=== PATIENT | female | born 1990 | race American Indian/Alaskan Native ===

== ENCOUNTER 2017-04-20 00:33 | Emergency (ER) | payer SELFPAY ==
[2017-04-20 10:49] VITALS: BP 126/95
[2017-04-20] MEDS ORDERED: TORADOL IM ONE (10:50)
--- NOTE | 2017-04-20 12:03 | Cat Scan Report ---
CT HEAD WITHOUT CONTRAST: HISTORY: Trauma with headache. Serial contiguous axial images were obtained through the cranium. Intravenous contrast material was not administered. The ventricles are normal in size and appearance. There is no mass effect or midline shift. No areas of abnormally increased or decreased attenuation are seen. No mass lesion is seen. The mastoid air cells and visualized portions of the sinuses are normal. IMPRESSION: Cranial CT scan within normal limits.
--- NOTE | 2017-04-20 18:24 | Emergency Department Report ---
Entered by CEASAR ACUNA, acting as scribe for CASSANDRA MORRIS NP. ED Headache HPI - General Chief Complaint: Headache Stated Complaint: HEADACHE Time Seen by Provider: 04/20/17 10:50 Source: patient Exam Limitations: no limitations - History of Present Illness Initial Comments: This is a 26 y/o female, nontoxic, well nourished in appearance, no acute signs of distress with a PMHx of anemia presents with a headache that began 3 days ago. Patient states she got hit in the head with a kickball 3 days ago. Rates pain an 8/10 in severity, which she describes as sharp and aching in quality. Aggravated with light exposure and movement, and alleviated with dark room. Denies LOC, blurry vision, stiff neck, nausea, vomiting, fever, chills, chest pain, SOB, ARRIAZA or dizziness, numbness, and tingling. Notes she has a PMHx of frequent headaches and migraines. Denies that this feels like a thunder-clap headache and that this is the worst headache in her life. Took OTC pain medication, Pain Away, with some relief. Patient states her headache is now a 4/ 10 in severity after receiving a shot of Toradol. NKDA. Timing/Duration: waxing and waning, other (3 days) Quality: severe, achy, sharp Recent Head Trauma: chronic headaches, head trauma > 24 hrs ago (3 days ago) Modifying Factors: improves with: medication. worse with: exposure to light, movement Associated Symptoms: denies symptoms. denies: confusion, fatigue, facial pain, fever/chills, flushing, loss of consciousness, nausea/vomiting, nasal congestion , nasal drainage, numbness in legs/feet, rash, seizures, sinus infection, stiff neck, vision changes, weakness Allergies/Adverse Reactions: Allergies No Known Allergies Allergy (Verified 12/11/13 18:41) Home Medications: Ambulatory Orders Hyoscyamine Subl [Levsin Sl] 0.125 mg SL Q4HR PRN #14 tablet 12/11/13 Ondansetron [Zofran Odt] 4 mg PO Q4H PRN #14 tab.rapdis 12/11/13 Butalb/Acetamin/Caff 50-325-40 [Fioricet] 1 tab PO Q6HR PRN #30 tab 04/20/17 ED Review of Systems Comment: All other systems reviewed and negative Constitutional: denies: chills, fever Eyes: denies: eye pain, eye discharge, vision change ENT: denies: ear pain, throat pain Respiratory: denies: cough, shortness of breath, wheezing Cardiovascular: denies: chest pain, palpitations Endocrine: no symptoms reported Gastrointestinal: denies: abdominal pain, nausea, vomiting, diarrhea Genitourinary: denies: urgency, dysuria, discharge Musculoskeletal: denies: back pain, joint swelling, arthralgia Skin: denies: rash, lesions Neurological: headache. denies: weakness, numbness, paresthesias, confusion, abnormal gait, vertigo Psychiatric: denies: anxiety, depression Hematological/Lymphatic: denies: easy bleeding, easy bruising ED Past Medical Hx - Past Medical History Previous Medical History?: Yes Additional medical history: anemia - Surgical History Past Surgical History?: No - Family History Family history: no significant - Social History Smoking Status: Never Smoker Substance Use Type: None - Medications Home Medications: Home Medications Medication Instructions Recorded Confirmed Last Taken Type Hyoscyamine Subl [Levsin Sl] 0.125 mg SL Q4HR PRN #14 tablet 12/11/13 Unknown Rx Ondansetron [Zofran Odt] 4 mg PO Q4H PRN #14 tab.rapdis 12/11/13 Unknown Rx Butalb/Acetamin/Caff 50-325-40 1 tab PO Q6HR PRN #30 tab 04/20/17 Unknown Rx [Fioricet] ED Physical Exam - General Limitations: No Limitations General appearance: alert, in no apparent distress - Head Head exam: Present: atraumatic, normocephalic - Eye Eye exam: Present: normal appearance, PERRL, EOMI. Absent: scleral icterus, conjunctival injection, nystagmus, periorbital swelling, periorbital tenderness Pupils: Present: normal accommodation - ENT ENT exam: Present: normal exam, normal orophraynx, mucous membranes moist, TM's normal bilaterally, normal external ear exam - Neck Neck exam: Present: normal inspection, full ROM. Absent: tenderness, meningismus, lymphadenopathy, thyromegaly - Respiratory Respiratory exam: Present: normal lung sounds bilaterally. Absent: respiratory distress, wheezes, rales, rhonchi, stridor, chest wall tenderness, accessory muscle use, decreased breath sounds, prolonged expiratory - Cardiovascular Cardiovascular Exam: Present: regular rate, normal rhythm, normal heart sounds. Absent: bradycardia, tachycardia, irregular rhythm, systolic murmur, diastolic murmur, rubs, gallop - GI/Abdominal GI/Abdominal exam: Present: soft, normal bowel sounds. Absent: distended, tenderness, guarding, rebound, rigid - Extremities Exam Extremities exam: Present: normal inspection, full ROM, normal capillary refill. Absent: tenderness, pedal edema, joint swelling, calf tenderness - Back Exam Back exam: Present: normal inspection, full ROM. Absent: tenderness, CVA tenderness (R), CVA tenderness (L), muscle spasm, paraspinal tenderness, vertebral tenderness, rash noted - Neurological Exam Neurological exam: Present: alert, oriented X3, CN II-XII intact, normal gait, reflexes normal. Absent: motor sensory deficit - Expanded Neurological Exam Expanded Neurological exam: Absent: innattentive, memory loss-remote event, memory loss- recent event, ataxia, receptive aphasia, expressive aphasia, total aphasia, tremor Patient oriented to: Present: person, place, time Speech: Present: fluid speech (normal tone of speech) Cranial nerves: EOM's Intact: Normal, Gag Reflex: Normal, Tongue Deviation: Normal, Nystagmus: Normal, Facial Sensation: Normal, Facial Palsy with Forehead Movement: Normal, Facial Palsy without Forehead Movement: Normal Cerebellar function: Finger to Nose: Normal, Heel to Soriano: Normal, Romberg: Normal Upper motor neuron: Keanu Neglect: Normal, Pronator Drift: Normal, Babinski Sign : Normal, Sensory Extinction: Normal Sensory exam: Upper Extremity Light Touch: Normal, Upper Extremity Pin Prick: Normal, Upper Extremity Temperature: Normal, UE 2 Point Discrimination: Normal, Lower Extremity Light Touch: Normal, Lower Extremity Pin Prick: Normal, Lower Extremity Temperature: Normal, LE 2 Point Discrimination: Normal Motor strength exam: RUE: 5, LUE: 5, RLE: 5, LLE: 5 DTR: bicep (R): 2+, bicep (L): 2+, tricep (R): 2+, tricep (L): 2+, knee (R): 2+ , knee (L): 2+, ankle (R): 2+, ankle (L): 2+ Best Eye Response ([place]): (4) open spontaneously Best Motor Response ([place]): (6) obeys commands Best Verbal Response ([place]): (5) oriented [place] Total: 15 - Psychiatric Psychiatric exam: Present: normal affect, normal mood - Skin Skin exam: Present: warm, dry, intact. Absent: rash ED Course Vital Signs 04/20/17 04/20/17 04/20/17 00:37 02:02 10:48 Temperature 98.5 F 98.5 F 98.1 F Pulse Rate 90 90 60 Respiratory 18 18 16 Rate Blood Pressure 116/72 Blood Pressure 116/72 126/95 [Right] O2 Sat by Pulse 100 100 99 Oximetry 04/20/17 11:02 Temperature Pulse Rate Respiratory 16 Rate Blood Pressure Blood Pressure [Right] O2 Sat by Pulse Oximetry - Reevaluation(s) Reevaluation #1: 04/20/17 13:18 Patient is speaking in full sentences with no signs of distress noted. Reevaluation #2: 04/20/17 13:20 Patient stated headache has subsided after medical treatment in the ED ED Medical Decision Making - Radiology Data Radiology results: report reviewed interpreted by me: Dr. Yoo Cranial CT scan within normal limits. ED Disposition Clinical Impression: Headache Qualifiers: Headache type: unspecified Headache chronicity pattern: chronic headache Intractability: not intractable Qualified Code(s): R51 - Headache Contusion Qualifiers: Encounter type: initial encounter Contusion area: head Contusion of head detail : scalp Qualified Code(s): S00.03XA - Contusion of scalp, initial encounter Disposition: - TO HOME OR SELFCARE Is pt being admited?: No Does the pt Need Aspirin: No Condition: Stable Instructions: Acute Headache (ED), Contusion in Adults (ED), Butalbital/ Acetaminophen/Caffeine (By mouth) Additional Instructions: Follow-up with a primary care doctor/neurologist in 3-5 days or if symptoms worsen to continue return to emergency room as soon as possible. Prescriptions: Butalb/Acetamin/Caff 50-325-40 [Fioricet] 1 tab PO Q6HR PRN #30 tab PRN Reason: Headache Referrals: PRIMARY CAREMD [Primary Care Provider] - 3-5 Days GENNA LAYTON MD [Staff Physician] - 3-5 Days [facility] [Outside] - 3-5 Days [facility] [Outside] - 3-5 Days LISA RÍOS JR, MD [Referring] - 3-5 Days Forms: Work/School Release Form(ED) This documentation as recorded by the KALPANA carlin JASMINE,accurately reflects the service I personally performed and the decisions made by me,CASSANDRA MORRIS, [employer].
== END 2017-04-20 13:48 | disposition home or self-care (01) ==
LOC: ED 00:33
DX: S00.03XA Contusion of scalp, initial encounter (principal); W21.01XA Struck by football, initial encounter; Y93.89 Activity, other specified; Y92.89 Other specified places as the place of occurrence of the external cause; Y99.8 Other external cause status
CPT/HCPCS: 70450; 96372; 99283; J1885